=== PATIENT | female | born 1970 | race African-American/Black ===

== ENCOUNTER 2020-03-29 09:28 | Day surgery (SDC) | payer BC ==
[2020-03-22 09:28] VITALS: BMI 25.8
[2020-03-29] MEDS ORDERED: LIDOCAINE HCL/PF 2% SDV 5ML VIAL ONE (09:34)
[2020-03-29] MEDS ORDERED: PROPOFOL 20 ML ONE ×2 (09:34)
[2020-03-29 09:52] VITALS: TEMP 98.8
[2020-03-29 11:50] VITALS: BP 110/65; PULSE 84
--- NOTE | 2020-03-31 17:28 | PATH ---
Surgical Pathology Report Patient Name: RASHAD PALAFOX [facility]. Rec. #: [id number] /Age/Gender: 1970 (Age: 49) / F Account: [id number] [facility] Taken: 03/29/2020 Received: 03/29/2020 Reported: 03/31/2020 Physicians: Shannan Sandhu M.D. Specimen(s) Received DESCENDING COLON, 45 CM, THICKENED FOLD Clinical History Change in bowel habits, GI bleed Final Diagnosis DESCENDING COLON, 45 CM, THICKENED FOLD, BIOPSY: COLONIC MUCOSA WITH FOCAL XANTHOMATOUS CHANGE WITHIN LAMINA PROPIA AND MILD SUPERFICIAL HYPERPLASTIC FEATURES. SEE COMMENT. Comment: Immunohistochemical stain performed and interpreted at [facility] for AE1/3 utilized to evaluate this case. Positive and negative controls (internal if applicable) show appropriate results. Electronically Signed Shannan Oquendo M.D. Gross Description Received in formalin, labeled "biopsy thickened fold descending colon at 45 cm" are 3 corrales, irregular portions of soft tissue ranging from 0.1-0.4 cm. in greatest dimension. The specimens are submitted in toto in one cassette. DL/03/30/2020 saudi/03/30/2020
== END 2020-03-29 12:00 | disposition home or self-care (01) ==
LOC: FASU-ENDO 09:28
PROVIDERS: ATTEND Internal Medicine Gastroenterology
PROC: 0DBN8ZX Excision of Sigmoid Colon, Via Natural or Artificial Opening Endoscopic, Diagnostic (ICD-10-PCS; principal; 2020-03-29 10:59)
DX: K63.89 Other specified diseases of intestine (principal); K64.1 Second degree hemorrhoids; K92.1 Melena
CPT/HCPCS: 88305-TC; 88342-TC

== ENCOUNTER 2020-08-21 16:00 | Emergency (ER) | payer BC ==
[2020-08-21 16:05] VITALS: TEMP 98.8; BMI 24.2
[2020-08-21 17:49] VITALS: BP 137/87; PULSE 78
== END 2020-08-21 17:15 | disposition home or self-care (01) ==
LOC: FER 16:00
DX: R42 Dizziness and giddiness (principal)
CPT/HCPCS: 82962; 99284-25

== ENCOUNTER 2022-01-30 10:02 | Day surgery (SDC) | payer BC ==
[2022-01-22 16:59] VITALS: BMI 25.9
[2022-01-30 10:45] VITALS: TEMP 97.1
[2022-01-30 13:08] VITALS: BP 126/77; PULSE 53
== END 2022-01-30 13:05 | disposition home or self-care (01) ==
LOC: FASU 10:02
PROVIDERS: ATTEND Internal Medicine Gastroenterology
PROC: 0DB68ZX Excision of Stomach, Via Natural or Artificial Opening Endoscopic, Diagnostic (ICD-10-PCS; 2022-01-30)
PROC: 0DB48ZX Excision of Esophagogastric Junction, Via Natural or Artificial Opening Endoscopic, Diagnostic (ICD-10-PCS; 2022-01-30)
PROC: 0DB98ZX Excision of Duodenum, Via Natural or Artificial Opening Endoscopic, Diagnostic (ICD-10-PCS; principal; 2022-01-30 11:53)
DX: K29.50 Unspecified chronic gastritis without bleeding (principal); B96.81 Helicobacter pylori [H. pylori] as the cause of diseases classified elsewhere; K22.70 Barrett's esophagus without dysplasia; R10.13 Epigastric pain
CPT/HCPCS: 88305-TC; 88342-TC